=== PATIENT | male | born 1995 | race Caucasian/White ===

== ENCOUNTER 2020-08-19 01:54 | Emergency (ER) | payer OTHER ==
[2020-08-19] MEDS ORDERED: ACETAMINOPHEN 500 MG TAB ONE (02:59)
[2020-08-19 05:19] LABS: Absolute Lymphocytes (CBC) 1.7 K/uL (0.7-4.9); Basophils % 0.2 % (0-1.3); Hematocrit 46.1 % (39.6-49.0); MPV 10.2 fL (7.6-11.3); RBC Red Blood Cell Count 5.18 M/uL (4.33-5.43)
[2020-08-19 05:33] LABS: Protime INR 1.08
[2020-08-19 05:36] LABS: BUN Blood Urea Nitrogen 11 mg/dL (7-18); Bicarbonate 24 mmol/L (21-32); Glucose Level 93 mg/dL (74-106); Potassium 3.5 mmol/L (3.5-5.1); Sodium Level 142 mmol/L (136-145)
[2020-08-19] MEDS ORDERED: ONDANSETRON 4 MG/2 ML VIAL ONE (06:28)
[2020-08-19] MEDS ORDERED: MORPHINE 4 MG/ML SYR ONE ×2 (06:28→09:48)
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
[2020-08-19 10:38] VITALS: TEMP 97.9
[2020-08-19 10:45] VITALS: BP 136/79; O2SAT 100
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
--- NOTE | 2020-08-19 12:23 | RAD REPORT ---
EXAM DESCRIPTION: CT Head COMPARISON: None. CLINICAL HISTORY: [facility] MAIN trauma TECHNIQUE: Axial images were obtained from skull base to vertex without intravenous contrast. Imag es viewed on bone and brain windows. Multiplanar reformats were performed. Automated exposure contr ol was utilized on this examination as a dose lowering technique. FINDINGS: Brain parenchyma, ventricles, dura, meninges, and extra-axial spaces: Ventricles and sulci are normal. No abnormal attenuation of brain parenchyma is present. No acute intracranial hemor rhage or abnormal extra-axial fluid collections are present. Vascular structures: No hyperdense arteries or veins. Calvarium, mastoid air cells, paranasal sinuses and orbits: There is a displaced fracture of the righ t mandibular ramus and a mildly displaced fracture of the right lateral pterygoid plate. Adjacent sof t tissue gas is noted. The mastoid air cells are clear. Visualized paranasal sinuses are unremarkable . Orbital structures are unremarkable. IMPRESSION: 1. No acute intracranial abnormality. 2. Displaced fractures of the right mandibular ramus and right lateral pterygoid plate. EXAM DESCRIPTION: CT Cervical Spine COMPARISON: None. CLINICAL HISTORY: [facility] MAIN trauma TECHNIQUE: Axial CT images were obtained through the entire cervical spine without contrast. Sagit cheli and coronal reconstructions are provided. Automated exposure control was utilized on this examina tion as a dose lowering technique. FINDINGS: Vertebrae: Minimal superior endplate compression is noted at C5 and C6. No subluxation o r destructive osseous process is present. Spinal canal, foramina, and facet joints: No significant spinal canal or foraminal stenoses. No significant facet arthropathy. Paraspinous soft-tissues: Normal. Thyroid: Normal. Other Findings: Nondisplaced fractures through the body of the left mandible and angle of the right m andible. Redemonstrated displaced fractures of the right mandibular ramus and right lateral pterygoid plate. IMPRESSION: 1. Minimal superior endplate compression of C5 and C6 with only trace 5% height loss. 2. Nondisplaced fractures through the body of the left mandible and angle of the right mandible. 3. Displaced fractures of the right mandibular ramus and right lateral pterygoid plate. Electronically signed by: Romulo Lane MD 08/19/2020 3:46 AM CDT Due to temporary technical issues with the PACS/Fluency reporting system, reports are being signed by the in house radiologist without review as a courtesy to ensure prompt reporting. The interpreting r adiologist is fully responsible for the content of the report.
--- NOTE | 2020-08-19 12:24 | RAD REPORT ---
EXAM DESCRIPTION: Facial Bones W/ Mpr 08/19/2020 3:45 AM CDT CLINICAL HISTORY: 25 years, Male, TRAUMA COMPARISON: None. TECHNIQUE: Multiple transaxial tomograms of the maxillofacial bones were performed utilizing 2 mm sl ice thickness at 2 mm interval reconstruction. In addition 2-D multiplanar reconstructions in the cor onal and sagittal plane were performed and reviewed. An individualized dose optimization technique, Automated Exposure Control, was utilized for the perfo rmed procedure. FINDINGS: There is a right mandibular fracture at the neck/ramus of the right mandible. The temporom andibular joint demonstrate to be within normal limits. There is small amount of air along the right technical healthcare consultant space with a fracture right lateral pterygoid process. The right zygomatic bone, paranasal sinuses, nasal bone, orbits, globes, intra and extraconal elements demonstrate to be within normal l imits. Superior medial and inferior turbinates are grossly unremarkable. Nasopharynx and orophary nx demonstrate clear. No focal masses were demonstrated. The rest of the soft tissue and bony str uctures are grossly unremarkable. IMPRESSION: Right mandibular fracture at the neck/ramus. Small amount of air along the right technical healthcare consultant space with a fracture lateral right pterygoid process. Electronically signed by: Matthew Parsons MD 08/19/2020 3:50 AM CDT Due to temporary technical issues with the PACS/Fluency reporting system, reports are being signed by the in house radiologist without review as a courtesy to ensure prompt reporting. The interpreting r adiologist is fully responsible for the content of the report.
== END 2020-08-19 10:34 | disposition short-term general hospital (02) ==
LOC: ER 01:54
DX: S02.641A Fracture of ramus of right mandible, initial encounter for closed fracture (principal); S02.69XA Fracture of mandible of other specified site, initial encounter for closed fracture; S12.400A Unspecified displaced fracture of fifth cervical vertebra, initial encounter for closed fracture; S12.500A Unspecified displaced fracture of sixth cervical vertebra, initial encounter for closed fracture; Y04.2XXA Assault by strike against or bumped into by another person, initial encounter; Y93.9 Activity, unspecified; Y92.149 Unspecified place in prison as the place of occurrence of the external cause; Z20.822 Contact with and (suspected) exposure to COVID-19
CPT/HCPCS: 85025; 80048; 36415; 86900; 86850; 85610; 86901; 85730; 72131; 70450; 72125; 72128; 70486; 76377; 96375; 96374; 99285; U0003; J2405